=== PATIENT | female | born 1965 | race Caucasian/White ===

== ENCOUNTER 2023-04-20 08:32 | Outpatient (CLI) | payer BC, SELFPAY | END 2023-04-20 08:33 | disposition home or self-care (01) | LOC: NFLDREF 04-21 14:56 | PROVIDERS: PCP Physician Assistant Medical; Referring Provider Physician Assistant Medical; Visit Provider Physician Assistant Medical | DX: Z00.00 Encounter for general adult medical examination without abnormal findings (principal); E78.5 Hyperlipidemia, unspecified; I10 Essential (primary) hypertension; D50.9 Iron deficiency anemia, unspecified; K76.0 Fatty (change of) liver, not elsewhere classified; R03.0 Elevated blood-pressure reading, without diagnosis of hypertension; Z13.29 Encounter for screening for other suspected endocrine disorder; Z11.59 Encounter for screening for other viral diseases; Z11.3 Encounter for screening for infections with a predominantly sexual mode of transmission | CPT/HCPCS: 80053; 80061; 82306; 82607; 84443; 86701; 86702; 86703; 86803; 87536 ==

== ENCOUNTER 2023-04-28 10:41 | Outpatient (CLI) | payer BC, SELFPAY ==
--- NOTE | 2023-04-28 06:40 | W.ANESCHARGE ---
Anesthesia Charges Start Date/Time Anesthesia Start Date: 04/28/23 Anesthesia Start Time: 11:38 Stop Date/Time Anesthesia Stop Date: 04/28/23 Anesthesia Stop Time: 12:13
--- NOTE | 2023-04-28 12:16 | W.ANESCHARGE ---
Anesthesia Charges Start Date/Time Anesthesia Start Date: 04/28/23 Anesthesia Start Time: 11:38 Stop Date/Time Anesthesia Stop Date: 04/28/23 Anesthesia Stop Time: 12:13
== END 2023-04-28 10:42 | disposition home or self-care (01) ==
LOC: OP CLINIC 10:41
PROVIDERS: PCP Physician Assistant Medical; Visit Provider Internal Medicine
DX: Z12.11 Encounter for screening for malignant neoplasm of colon (principal); K64.4 Residual hemorrhoidal skin tags; K64.8 Other hemorrhoids; K29.70 Gastritis, unspecified, without bleeding; R12 Heartburn
CPT/HCPCS: 43239; 45378; 813; 88305; J2405; J2704

== ENCOUNTER 2023-05-12 14:53 | Outpatient (CLI) | payer BC, SELFPAY ==
--- NOTE | 2023-05-12 15:20 | CRLHL7_ITS ---
For Patients: As a result of the Century Cures Act, medical imaging exams and procedure reports are released immediately into your electronic medical record. You may view this report before your referring provider. If you have questions, please contact your health care provider. BILATERAL SCREENING MAMMOGRAM WITH COMPUTER-AIDED DETECTION AND TOMOSYNTHESIS TECHNIQUE: CC and MLO views were obtained. These mammographic images have been obtained using full-field digital technique. These mammographic images were interpreted with the benefit of computer-aided detection. Breast Tomosynthesis was used in this interpretation. COMPARISON FILM: 12/24/21, 11/24/20, 11/21/19. FINDINGS: The breasts are heterogeneously dense, which may obscure small masses IMPRESSION: There is no radiographic evidence for malignancy. ASSESSMENT: BI-RADS Category 1: Negative RECOMMENDATION: Routine screening mammogram in 1 year. A lay language report of this examination will be provided to the patient. Torin Rahman M.D. Diagnostic Radiologist [email or web address] DSM/bhe be/Dictated by: Torin Rahman MD @ 05/15/2023 1:24:00 PM (Electronically Signed)
== END 2023-05-12 14:54 | disposition home or self-care (01) ==
LOC: MAMMO 14:53
PROVIDERS: PCP Physician Assistant Medical; Visit Provider Physician Assistant Medical
DX: Z12.31 Encounter for screening mammogram for malignant neoplasm of breast (principal); R92.2 Inconclusive mammogram
CPT/HCPCS: 77063; 77067

== ENCOUNTER 2023-06-01 10:49 | Outpatient (CLI) | payer BC, SELFPAY ==
--- NOTE | 2023-06-01 11:15 | CRLHL7_ITS ---
For Patients: As a result of the Century Cures Act, medical imaging exams and procedure reports are released immediately into your electronic medical record. You may view this report before your referring provider. If you have questions, please contact your health care provider. Technique: Double-contrast upper GI performed after the uneventful administration of effervescent crystals and thick barium followed by thin barium. Fluoroscopy time 1 minute 42 seconds. Indication: DIAPHRAGMATIC HERNIA W/O OBSTRUCTION OR GANGRENE Comparison: None. Findings: Swallowing mechanism: Normal. Esophageal motility: Slightly decreased. Gastroesophageal reflux: Mild spontaneous reflux. Hernia: Small sliding hernia. Esophagus, stomach and duodenal bulb mucosa: Mild tertiary contractions are present within the distal esophagus. Mild prominence of the gastric mucosal folds. Impression: Mild spontaneous reflux, mild diminished esophageal motility and mild tertiary contractions of the distal esophagus. Small sliding hernia. Dictated by Torin Rahman MD @ 06/02/2023 8:39:32 AM (Electronically Signed)
== END 2023-06-01 10:50 | disposition home or self-care (01) ==
LOC: RAD 10:50
PROVIDERS: PCP Physician Assistant Medical; Visit Provider Surgery
DX: K44.9 Diaphragmatic hernia without obstruction or gangrene (principal); K21.9 Gastro-esophageal reflux disease without esophagitis
CPT/HCPCS: 74246

== ENCOUNTER 2023-07-04 09:59 | Outpatient (CLI) | payer BC, SELFPAY | END 2023-07-04 10:00 | disposition home or self-care (01) | LOC: NFLDREF 07-05 15:36 | PROVIDERS: PCP Physician Assistant Medical; Referring Provider Physician Assistant Medical; Visit Provider Physician Assistant Medical | DX: E78.5 Hyperlipidemia, unspecified (principal) | CPT/HCPCS: 80061; 80076 ==

== ENCOUNTER 2023-12-18 19:00 | Outpatient (CLI) | payer BC, SELFPAY ==
--- NOTE | 2023-12-27 09:14 | W.PM.SLEEP ---
Sleep Study Details Details Interpreting Provider: Tatyana Date of Sleep Study: 12/18/23 Sleep Study Details: STUDY TYPE:? Home unattended ? BMI:? 24.2 ORDERING PROVIDER:Saida Joe INDICATION:? Daytime hypersomnolence, concerns about sleep apnea ? SLEEP SUMMARY:? 521 minutes monitored RESPIRATORY SUMMARY:? AHI 0.8 Low oxygen 82 0.5% of study oxygen less than 90% Snoring 62% PERIODIC LIMB MOVEMENTS OF SLEEP:? Not recorded during home study CARDIAC:? Range 62-95, mean 67.9 IMPRESSION:? Snoring This study does not demonstrate clinically significant obstructive sleep apnea although there were some desaturations. If sleep disorder strongly suspected would recommend an in-lab study with eye sedative hypnotic agent. RECOMMENDATION: See above impression
== END 2023-12-18 19:01 | disposition home or self-care (01) ==
LOC: SLEEP 19:00
PROVIDERS: PCP Physician Assistant Medical; Visit Provider Otolaryngology
DX: R06.83 Snoring (principal); G47.30 Sleep apnea, unspecified; G47.10 Hypersomnia, unspecified
CPT/HCPCS: 95806

== ENCOUNTER 2024-01-05 09:02 | Outpatient (CLI) | payer BC, SELFPAY | END 2024-01-05 09:03 | disposition home or self-care (01) | LOC: NFLDREF 01-08 02:46 | PROVIDERS: PCP Physician Assistant Medical; Referring Provider Physician Assistant Medical; Visit Provider Physician Assistant Medical | DX: R74.8 Abnormal levels of other serum enzymes (principal) | CPT/HCPCS: 80053 ==

== ENCOUNTER 2024-01-19 09:16 | Day surgery (SDC) | payer BC, SELFPAY ==
[2024-01-19] VITALS (18 sets, daily range): BP systolic 108–169; BP diastolic 65–116; PULSE 74–107; RESP 14–18; TEMP 36.4–36.6; O2SAT 94–99; BMI 25.1
[2024-01-19] MEDS: SCOPOLAMINE 1 MG/3 DAY PATCH 1 PATCH TRANSDERMA (09:40)
[2024-01-19] MEDS: SODIUM CHLORIDE 0.9 % (FLUSH) 10 ML SYRINGE IVF (09:53)
[2024-01-19] MEDS: LACTATED RINGERS 1000 ML 1,000 ML 100 ML IV (09:53)
[2024-01-19] MEDS: OXYMETAZOLINE 0.05% NASAL SPRAY 2 SPRAY NOSTRIL-B (10:13)
[2024-01-19] MEDS: COCAINE HCL 4 % 4 ML SOLUTION NOSTRIL-B (11:57)
--- NOTE | 2024-01-19 11:57 | SUR.OPER ---
PATIENT QUESTIONS ANSWERED SATISFACTORILY PREOPERATIVELY. PATIENT BROUGHT TO OR RM #1 ON CART. Patient positioned supine on OR #1 bed. Perioperative team wrapped arms bilaterally at patient side with drawsheet. ? Final approval of positioning by surgeon.
--- NOTE | 2024-01-19 11:58 | W.ANESCHARGE ---
Anesthesia Charges Start Date/Time Anesthesia Start Date: 01/19/24 Anesthesia Start Time: 11:41 Stop Date/Time Anesthesia Stop Date: 01/19/24 Anesthesia Stop Time: 12:46
[2024-01-19] MEDS: BUPIVACAINE 0.5 %/EPI 1:200K 3 ML INJECTION (12:10)
[2024-01-19] MEDS: MUPIROCIN 1 GM PACKET 1 APPLIC TOPICAL (12:21)
[2024-01-19] MEDS: AYR SALINE NASAL GEL 1 APPLIC NOSTRIL-B (12:26)
--- NOTE | 2024-01-19 12:26 | W.PM.ENTPROC ---
Procedure Note Date of procedure: 01/19/24 Procedure: Preoperative diagnosis cryptic tonsillitis, tonsilliths, nasal obstruction, deviated septum, right inferior turbinate hypertrophy Postoperative diagnosis same Procedure tonsillectomy, nasal septoplasty, submucous partial resection right inferior turbinate Under general endotracheal anesthesia patient was prepped and draped usual fashion. The McIvor mouth gag was inserted the tongue retracted forward. There was no significant adenoid tissue. The lower 4th of the uvula was amputated to prevent swelling. The right and left tonsil were removed with a combination of needlepoint and bipolar cautery. Bleeding was controlled with suction cautery. Meticulous hemostasis was achieved. After regarding and gloving attention was turned to the nose. The nose was decongested injected. A right hemitransfixion incision was made left anterior and posterior tunnels were created. The [place] dissector was used to make an incision in the cartilage anterior to the bone and a right posterior tunnel created. The posterior deflected portions of septal bone resected a large piece trimmed returned to intraseptal space. The anterior septum was simply moved to midline. The hemitransfixion was closed with 2 4-0 chromic sutures. A stab incision was made in the anterior of the right inferior turbinate a tunnel created with a [place] dissector. The awais bone was outfractured and a conservative anterior submucous resection performed. The Coblation was used for hemostasis and to cauterize intramurally along the inferior 10% particularly the posterior head with there was a large amount of polypoid mucosa. Silastic stents were secured with 3-0 nylon and Merocel pack was placed above the stents on each side. The patient procedure well was taken recovery in satisfactory condition. Blood loss was 20 mL Surgeon: Jason Joe MD
--- NOTE | 2024-01-19 12:48 | W.ANESCHARGE ---
Anesthesia Charges Start Date/Time Anesthesia Start Date: 01/19/24 Anesthesia Start Time: 11:41 Stop Date/Time Anesthesia Stop Date: 01/19/24 Anesthesia Stop Time: 12:46
[2024-01-19] MEDS: HYDRALAZINE HCL 20 MG/ML inj 10 MG IVP ×2 (13:07→13:18)
[2024-01-19] MEDS: METOCLOPRAMIDE HCL 5 MG/ML INJ 10 MG IVP (13:42)
--- NOTE | 2024-01-19 14:53 | SUR.PHASEII ---
Pt arrived to [facility] from PACU at 1240 and verbalized, I feel great I don't have any pain. Shortly after this, pt reported sudden onset of Nausea. Etl Analyst administered Reglan and upon recheck of how patient was feeling, pt reported sudden onset of headache and chest tightness. Dr. Guerra notified and EKG ordered. EKG reviewed and cleared. Pt verbalized symptoms were dissipating. Vitals remained stable throughout. at 1450, pt was getting dressed for discharge and became hot and light headed. laid back in recliner, BP recheck prior to standing and after feeling light headed both were low for patient but no significant drop noted - see phase II charting.
== END 2024-01-19 15:08 | disposition home or self-care (01) ==
LOC: OR 09:17
PROVIDERS: PCP Physician Assistant Medical; Visit Provider Otolaryngology
PROC: (CPT 42826; principal; 2024-01-19 10:30)
DX: J35.01 Chronic tonsillitis (principal); J34.2 Deviated nasal septum; J34.3 Hypertrophy of nasal turbinates; J34.89 Other specified disorders of nose and nasal sinuses
CPT/HCPCS: 42826; 30520; 30140; 00160; 88304; 93005; 99283; 99284; A9270; J0330; J0360; J1100; J2405; J2704; J2765; J3010; J3490; J7120

== ENCOUNTER 2024-01-19 21:55 | Emergency (ER) | payer BC, SELFPAY ==
[2024-01-19 22:01] VITALS: BP 106/66; PULSE 92; RESP 18; TEMP 36.3; O2SAT 98; BMI 24.2
--- NOTE | 2024-01-19 22:51 | ED_ITS ---
HPI - General Adult General Chief complaint: Post Op Complication Stated complaint: post op left arm rash and streak Time Seen by Provider: 01/19/24 22:23 History of Present Illness HPI narrative: tonsils, septoplasty, adenoid surgery today with Sheeba. noticed this afternoon a rash on her L arm with a red streak on her upper arm. rash is not itchy or painful, called after hours nurse line and they recommended she come be evaluated. the rash is on the opposite arm to where her IV was for surgery 58-year-old woman presenting to the emergency department with concern of streaking red lesion on the left arm. Called in to triage line and was recommended to come to the emergency department. This morning had ENT surgery. This afternoon noticed this rash. Has not had fever. Is not having pain here in particular or nor related to surgery. no shortness of breath Related Data Home Medications Medication Instructions Recorded Confirmed lifitegrast 5 % eye drops in a 1 drp ophthalmic (eye) BID 04/12/23 01/23/24 dropperette omeprazole 20 mg tablet,delayed mg PO DAILY 04/12/23 01/23/24 release Previous Rx's Medication Instructions Recorded spironolactone 50 mg tablet 50 mg PO BID #180 tabs 04/12/23 rosuvastatin 20 mg tablet 20 mg PO QDAY #90 tabs 07/03/23 trazodone 50 mg tablet 50 - 100 mg (1 - 2 x 50 mg) PO 01/10/24 QDAY PRN sleep aide #90 tabs cephalexin 250 mg capsule 250 mg PO TID #18 caps 01/19/24 ondansetron 4 mg disintegrating 4 mg PO Q8H #10 tabs 01/19/24 tablet tramadol 25 mg tablet 25 mg PO Q6H PRN pain #30 tabs 01/22/24 Allergies Allergy/AdvReac Type Severity Reaction Status Date / Time acetaminophen Allergy Severe Vomiting Verified 01/23/24 09:42 [From Tylenol-Codeine] codeine Allergy Severe Vomiting Verified 01/23/24 09:42 [From Tylenol-Codeine] hydrocodone Allergy Severe Vomiting Verified 01/23/24 09:42 oxycodone Allergy Severe Vomiting Verified 01/23/24 09:42 Review of Systems Status of ROS: Reports: 6 or more systems reviewed and unremarkable except as noted in History and below PFSH [facility] Medical History Pterygium ?H11.009 - Unspecified pterygium of unspecified eye (ICD-10) History of headache ?Z87.898 - Personal history of other specified conditions (ICD-10) History of Surgical History Hx of eye surgery ?Z98.890 - Other specified postprocedural states (ICD-10) S/P tubal ligation ?Z98.51 - Tubal ligation status (ICD-10) History of hysterectomy ?Z90.710 - Acquired absence of both cervix and uterus (ICD-10) Family History Mother Diabetes High blood pressure High cholesterol CHF (congestive heart failure) Father High blood pressure Brother Diabetes Lymphoma Social History Narrative: The patient is . She has 3 children. Nonsmoker. Denies recreational drug use. Denies alcohol use. She works for [employer]. Smoking Status: Never smoker How often do you have a drink containing alcohol: never AUDIT-C Alcohol total score: 0 Non-prescribed substance use: denies use Caffeine: Yes (1 c/day) Little interest or pleasure in doing things: not at all Feeling down, depressed, or hopeless: not at all Are you using contraception or practicing any form of control: No (hyst) Exam Narrative: Exam Narrative: Accompanied here by her daughter I think. Is very pleasant. NAD. Folded up 4 x 4 gauze dressing under her nose. Oropharynx is without unusual swelling with expected cautery in the posterior oropharynx/tonsillar fossa. No stridor. Lungs appear to be clear. Emanation of the arm in question the left arm shows a very straight dark red line on the inner left arm without surrounding swelling or erythema. This extends some about 8 in or so slightly diagonal. There is some mild erythema near by more petechial but this is more pronounced in the left forearm with diffuse petechiae. There is no cellulitic change. There is no lymphangitic rash. Const: Vital Signs, click to edit/add: Vital Signs - 24 hr 01/19/24 22:01 Temperature 97.3 F L Pulse Rate [Pulse Oximeter] 92 Respiratory Rate 18 Blood Pressure [Ri ght Upper Arm] 106/66 Pulse Oximetry 98 Documenting provider has reviewed patient's vital signs: yes Course Vital Signs Vital signs: Initial Vital Signs Temperature 97.3 F L 01/19/24 22:01 Temperature Source Temporal Artery Scan 01/19/24 22:01 Pulse Rate 92 01/19/24 22:01 Respiratory Rate 18 01/19/24 22:01 Blood Pressure 106/66 01/19/24 22:01 Blood Pressure Mean 79 01/19/24 22:01 Blood Pressure Position Sitting 01/19/24 22:01 Pulse Oximetry 98 01/19/24 22:01 Vital Signs Temperature 97.3 F L 01/19/24 22:01 Pulse Rate 92 01/19/24 22:01 Respiratory Rate 18 01/19/24 22:01 Blood Pressure 106/66 01/19/24 22:01 Pulse Oximetry 98 01/19/24 22:01 Temperature 97.3 F L 01/19/24 22:01 Pulse Rate 92 01/19/24 22:01 Respiratory Rate 18 01/19/24 22:01 Blood Pressure 106/66 01/19/24 22:01 Pulse Oximetry 98 01/19/24 22:01 Medications Administered Medications: Discontinued Medications Generic Name Dose Route Start Last Admin Trade Name Freq PRN Reason Stop Dose Admin Lorazepam 2 mg 01/19/24 22:54 01/19/24 23:11 Lorazepam 2 Mg/Ml Inj IVP 01/19/24 22:55 Not Given ONCE ONE Medical Decision Making MDM Narrative Medical decision making narrative: This does not appear to be infectious problem. She is doing quite well postop otherwise. Particularly since this was not the arm where her IV was I would presume that these krishnan are related to blood pressure cuff and monitoring during the mornings surgery. Understandably this is difficult to assess over the phone. Daughter un derstandably a little annoyed. Offered reassurance. See patient discharge plan further discussion Discharge Plan Discharge Clinical Impression: Petechiae Patient Disposition: Home w/ Parent or Adult Condition: Stable Additional Instructions: No intervention likely necessary. Would just elevate your arm if seems uncomfortable. Be seen otherwise for marked increase in swelling or erythema or pain. Prescriptions: No Action lifitegrast 5 % dropperette 1 p ophthalmic (eye) BID omeprazole 20 mg tablet,delayed release (DR/EC) PO DAILY spironolactone 50 mg tablet 50 mg PO BID Qty: 180 3RF trazodone 50 mg tablet 50 - 100 mg PO QDAY PRN (Reason: sleep aide) Qty: 90 1RF Rx Instructions: 1-2 tablets nightly to help with sleep as needed cephalexin 250 mg capsule 250 mg PO TID Qty: 18 0RF ondansetron 4 mg tablet,disintegrating 4 mg PO Q8H Qty: 10 0RF rosuvastatin 20 mg tablet 20 mg PO QDAY Qty: 90 3RF Rx Instructions: Once daily for high cholesterol tramadol 25 mg tablet 25 mg PO Q6H PRN (Reason: pain) Qty: 30 0RF Follow Up/Referrals: Meera Arriaza PA-C [Primary Care Provider] -
== END 2024-01-19 23:17 | disposition home or self-care (01) ==
PROVIDERS: Emergency Provider Family Medicine; PCP Physician Assistant Medical
DX: R23.3 Spontaneous ecchymoses (principal)
CPT/HCPCS: 99284

== ENCOUNTER 2025-09-02 14:55 | Outpatient (CLI) | payer BC, SELFPAY ==
--- NOTE | 2025-09-02 15:20 | CRLHL7_ITS ---
For Patients: As a result of the Century Cures Act, medical imaging exams and procedure reports are released immediately into your electronic medical record. You may view this report before your referring provider. If you have questions, please contact your health care provider. INDICATION: BILATERAL SCREENING MAMMGRAM, ASYMPTOMATIC 59 Y/O FEMALE COMPARISON: 05/12/2023, 12/25/2021, 11/24/2020 TECHNIQUE: Digital mammogram in CC and MLO projections including computer-aided detection (CAD) and tomosynthesis. BREAST COMPOSITION: The breasts are heterogeneously dense, which may obscure small masses. FINDINGS: No suspicious findings. ASSESSMENT: BI-RADS 2 Benign RECOMMENDATION: Annual screening mammogram. A lay language report of this examination will be provided to the patient. Dictated by: Torin Rahman MD @ 09/03/2025 11:05:20 (Electronically Signed)
== END 2025-09-02 14:56 | disposition home or self-care (01) ==
LOC: MAMMO 14:55
PROVIDERS: PCP Physician Assistant Medical; Visit Provider Physician Assistant Medical
DX: Z12.31 Encounter for screening mammogram for malignant neoplasm of breast (principal); R92.333 Mammographic heterogeneous density, bilateral breasts
CPT/HCPCS: 77063; 77067